=== PATIENT | female | born 1995 | race Caucasian/White ===

== ENCOUNTER 2017-03-26 20:20 | Emergency (ER) | payer OTHER ==
[2017-03-26 20:33] VITALS: BP 168/95; PULSE 125; TEMP 99.5; BMI 48.2
--- NOTE | 2017-03-26 20:34 | PDOC ---
Rapid Medical Evaluation Chief Complaint: Back Pain Time Seen by Provider: 03/26/17 20:31 Medical Evaluation: Allergies Allergy/AdvReac Type Severity Reaction Status Date / Time No Known Allergies Allergy Verified 03/26/17 20:28 03/26/17 20:31 I performed a brief in-person evaluation of this patient. This patient presents with a chief complaint of constant lower back pain, that is exacerbated by movement x 3 weeks. States pain radiates into right leg. Reports no pain or burning with urination. Also reports no fever chills or flank pain. Used tylenol occassionally with no complete relief. Pertinent physical exam findings: NAD lungs clear bilaterally heart s1s2 no mid spinal tenderness no cva tenderness I have ordered the following: urine , urinalysis, urine culture The patient will proceed to the ED for further evaluation.
[2017-03-26 20:55] LABS: URINE APPEARANCE CLEAR; URINE BILIRUBIN NEGATIVE (NEGATIVE); URINE BLOOD NEGATIVE (NEGATIVE); URINE COLOR LTYELLOW; URINE GLUCOSE (UA) NEGATIVE (NEGATIVE); URINE KETONE NEGATIVE (NEGATIVE); URINE LEUK ESTERASE NEGATIVE (NEGATIVE); URINE NITRITE NEGATIVE (NEGATIVE); URINE PROTEIN NEGATIVE (NEGATIVE)
[2017-03-26 23:34] LABS: HCG,QUALITATIVE URINE NEGATIVE
[2017-03-27] MEDS ORDERED: IBUPROFEN 400 MG TABLET (FP) PO ONE ×2 (01:30→03:31)
[2017-03-27] MEDS ORDERED: METHOCARBAMOL 500 MG TABLET PO ONE (01:30)
--- NOTE | 2017-03-27 01:32 | PDOC ---
History of Present Illness - History of Present Illness Initial Comments: 03/27/17 02:01 Patient is a 21F, with no significant PMHx, who presents to the ED with lower back pain for 2 weeks. Patient states the back pain is more towards right side. She denies experiencing trauma, falling, or doing any heavy lifting. She states she was having menstrual cramps, but her menses resolved and her pain continued. Patient states her periods are normally regular. She states she took two Tylenol occasionally for pain w/ no relief. She also reports feeling her lower back tighten when she bends. She states he appetite has been normal. She denies fever, chills, nausea, vomit, dysuria frequency, or sick contacts <Tika Saldivar - Last Filed: 03/27/17 02:01> - General History Source: Patient <Angel Luis Luis - Last Filed: 03/27/17 03:03> - General Chief Complaint: Back Pain Stated Complaint: BACK PAIN Time Seen by Provider: 03/26/17 20:31 Past History <Tika Saldivar - Last Filed: 03/27/17 02:01> - Suicide/Smoking/Psychosocial Hx Smoking History: Never smoked <Angel Luis Luis - Last Filed: 03/27/17 03:03> - Past Medical History Allergies/Adverse Reactions: Allergies Allergy/AdvReac Type Severity Reaction Status Date / Time No Known Allergies Allergy Verified 03/26/17 20:28 Home Medications: Ambulatory Orders Ibuprofen 800 mg PO TID #30 tablet 03/27/17 Methocarbamol [Robaxin -] 1,500 mg PO Q8H #60 tablet 03/27/17 Review of Systems - Review of Systems Comments:: 03/27/17 02:01 CONSTITUTIONAL: Absent: fever, no chills, no fatigue EYES: Absent: visual changes ENT: Absent: ear pain, no sore throat CARDIOVASCULAR: Absent: chest pain, no palpitations RESPIRATORY: Absent: cough, no SOB GI: Absent: abdominal pain, no nausea, no vomiting, no constipation, no diarrhea GENITOURINARY: Absent: dysuria, no frequency, no hematuria MUSKULOSKELETAL: Present: back pain Absent: no arthralgia SKIN: Absent: rash NEURO: Absent: headache <Tika Saldivar - Last Filed: 03/27/17 02:01> *Physical Exam - Vital Signs Last Vital Signs Temp Pulse Resp BP Pulse Ox 99.5 F 125 H 20 168/95 99 03/26/17 20:28 03/26/17 20:28 03/26/17 20:28 03/26/17 20:28 03/26/17 20:28 - Physical Exam Comments: 03/27/17 02:02 GENERAL: Well-appearing, well-nourished. No acute distress. Morbidly obese. HEENT: Normocephalic, atraumatic. PERRL, EOM intact. CARDIOVASCULAR: Normal S1, S2. Regular rate and rhythm. PULMONARY: Clear to auscultation bilaterally. ABDOMEN: Soft, non-distended, non-tender. EXTREMITIES: Normal ROM in all four extremities. No gross deformities. SKIN: Warm, dry. No rash NEUROLOGICAL: No focal neurological deficits. <Tika Saldivar - Last Filed: 03/27/17 02:01> - Vital Signs Last Vital Signs Temp Pulse Resp BP Pulse Ox 99.5 F 125 H 20 168/95 99 03/26/17 20:28 03/26/17 20:28 03/26/17 20:28 03/26/17 20:28 03/26/17 20:28 <Angel Luis Luis - Last Filed: 03/27/17 03:03> ED Treatment Course - ADDITIONAL ORDERS Additional order review: Laboratory Results 03/26/17 20:40 Urine Color Ltyellow Urine Appearance Clear Urine pH 6.0 Ur Specific Dagmar 1.017 Urine Protein Negative Urine Glucose (UA) Negative Urine Ketones Negative Urine Blood Negative Urine Nitrite Negative Urine Bilirubin Negative Urine Urobilinogen 2.0 H Ur Leukocyte Esterase Negative Urine HCG, Qual Negative <Tika Saldivar - Last Filed: 03/27/17 02:01> - ADDITIONAL ORDERS Additional order review: Laboratory Results 03/26/17 20:40 Urine Color Ltyellow Urine Appearance Clear Urine pH 6.0 Ur Specific Dagmar 1.017 Urine Protein Negative Urine Glucose (UA) Negative Urine Ketones Negative Urine Blood Negative Urine Nitrite Negative Urine Bilirubin Negative Urine Urobilinogen 2.0 H Ur Leukocyte Esterase Negative Urine HCG, Qual Negative <Angel Luis Luis - Last Filed: 03/27/17 03:03> Medical Decision Making - Medical Decision Making 03/27/17 03:03 Dr. Luis: The scribe's documentation has been prepared under my direction and personally reviewed by me in its entirery. I confirm that the note above accurately reflects all work, treatment, procedures, and medical decision making performed by me. <Angel Luis Luis - Last Filed: 03/27/17 03:03> *DC/Admit/Observation/Transfer - Attestations Scribe Attestion: 03/27/17 02:02 Documentation prepared by Tika Saldivar, acting as medical affairs director for Angel Luis Luis MD. <Tika Saldivar - Last Filed: 03/27/17 02:01> - Discharge Dispostion Admit: No <Angel Luis Luis - Last Filed: 03/27/17 03:03> Diagnosis at time of Disposition: Low back pain Qualifiers: Chronicity: unspecified Back pain laterality: right Sciatica presence: without sciatica Qualified Code(s): M54.5 - Low back pain - Discharge Dispostion Disposition: HOME Condition at time of disposition: Stable - Prescriptions Prescriptions: Ibuprofen 800 mg PO TID #30 tablet Methocarbamol [Robaxin -] 1,500 mg PO Q8H #60 tablet - Referrals Referrals: Emma Coleman MD [Staff Physician] - - Patient Instructions Printed Discharge Instructions: DI for Low Back Pain
[2017-03-27] MEDS ORDERED: METHOCARBAMOL 500 MG TABLET ONE (03:31)
== END 2017-03-27 03:41 | disposition home or self-care (01) ==
LOC: JER 20:20
DX: M54.5 Low back pain (principal)
CPT/HCPCS: 72131-TC; 81003; 84703; 87086; 99281-25

== ENCOUNTER 2018-12-27 18:13 | Emergency (ER) | payer OTHER ==
[2018-12-27 18:21] VITALS: BMI 53.1
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
[2018-12-27] MEDS ORDERED: diazePAM 5 MG TABLET PO ONE (18:56)
[2018-12-27] MEDS ORDERED: ACETAMINOPHEN 325 MG TABLET (FP) PO ONE (18:57)
[2018-12-27 18:58] LABS: BASO % 0.7 % (0-2.0); EOS % 1.6 % (0-4.5); HEMATOCRIT 43.3 % (32.4-45.2); HEMOGLOBIN 14.3 GM/dL (10.7-15.3); LYMPH % 29.6 % (8-40); MCH 27.2 pg (25.7-33.7); MEAN CELL VOLUME 82.6 fl (80-96); MEAN PLT VOLUME 7.7 fl (7.5-11.1); MONO % 6.2 % (3.8-10.2); NEUT % 61.9 % (42.8-82.8); PLATELET COUNT 343 K/MM3 (134-434); RBC 5.25 M/mm3 (3.60-5.2); RDW 14.7 % (11.6-15.6); WHITE BLOOD COUNT 9.7 K/mm3 (4.0-10.0)
[2018-12-27 19:37] LABS: ALBUMIN 4.1 g/dl (3.4-5.0); ALK PHOS 89 U/L (45-117); ANION GAP 10 MMOL/L (8-16); BILIRUBIN,TOTAL 0.7 mg/dL (0.2-1); BLOOD UREA NITROGEN 9.7 mg/dL (7-18); CALCIUM 9.7 mg/dL (8.5-10.1); CHLORIDE 105 mmol/L (98-107); CO2 24 mmol/L (21-32); CREATININE 0.7 mg/dL (0.55-1.3); GLUCOSE,RANDOM 82 mg/dL (74-106); MAGNESIUM 1.9 mg/dL (1.8-2.4); PHOSPHOROUS 3.8 mg/dL (2.5-4.9); SGOT/AST 17 U/L (15-37); SGPT/ALT 30 U/L (13-61); SODIUM 139 mmol/L (136-145)
[2018-12-27] MEDS ORDERED: ACETAMINOPHEN 325 MG TABLET (FP) ONE (19:51)
[2018-12-27] MEDS ORDERED: diazePAM 5 MG TABLET ONE (19:51)
[2018-12-27 20:29] VITALS: BP 139/79; PULSE 81; TEMP 98
--- NOTE | 2018-12-28 20:21 | EKG ---
Test Reason : Blood Pressure : / mmHG Vent. Rate : 092 BPM Atrial Rate : 092 BPM P-R Int : 144 ms QRS Dur : 080 ms QT Int : 346 ms P-R-T Axes : 050 071 058 degrees QTc Int : 427 ms NORMAL SINUS RHYTHM POSSIBLE LEFT ATRIAL ENLARGEMENT CANNOT RULE OUT ANTERIOR INFARCT , AGE UNDETERMINED ABNORMAL ECG NO PREVIOUS ECGS AVAILABLE Confirmed by MD GRACIA, SELIN ([id number]) on 12/28/2018 8:21:17 PM Referred By: Confirmed By:SELIN FAGAN MD
== END 2018-12-27 20:42 | disposition home or self-care (01) ==
LOC: JER 18:13
DX: F41.9 Anxiety disorder, unspecified (principal); M79.10 Myalgia, unspecified site; R07.9 Chest pain, unspecified; Z88.0 Allergy status to penicillin; E66.2 Morbid (severe) obesity with alveolar hypoventilation; Z68.43 Body mass index [BMI] 50.0-59.9, adult; F31.9 Bipolar disorder, unspecified; V43.62XA Car passenger injured in collision with other type car in traffic accident, initial encounter; Y93.89 Activity, other specified; Y92.410 Unspecified street and highway as the place of occurrence of the external cause
CPT/HCPCS: 36415; 71046-TC-FY; 80053; 82550; 83735; 84100; 84484; 84702; 84703; 85025; 93005; 93010; 99283-25

== ENCOUNTER 2019-05-11 17:51 | Emergency (ER) | payer OTHER ==
[2019-05-11 17:59] VITALS: BP 138/77; PULSE 82; TEMP 98.2; BMI 52.5
--- NOTE | 2019-05-11 19:08 | PDOC ---
History of Present Illness - General Chief Complaint: Pain Stated Complaint: BACK PAIN Time Seen by Provider: 05/11/19 18:29 History Source: Patient - History of Present Illness Initial Comments: 05/11/19 19:13 Chief complaint: Back pain Patient is a healthy 23-year-old female whose only medical history relates to her lower back for the last 2 years. Patient states she has been having right lower back pain since . Patient denies any fever, numbness. Patient took a Tylenol, she also took Flexeril which did not help. Patient does not know when her last period is because she has an IUD. Patient had x-ray and CT done of her back little over a year ago. GENERAL/CONSTITUTIONAL: No fever, weakness. dizziness HEAD, EYES, EARS, NOSE AND THROAT: No change in vision. No ear pain or discharge. No sore throat. CARDIOVASCULAR: No chest pain RESPIRATORY: No shortness of breath or cough GASTROINTESTINAL: No pain, nausea, vomiting, diarrhea or constipation GENITOURINARY: No dysuria MUSCULOSKELETAL: No neck, +back pain SKIN: No rash NEUROLOGIC: No headache, vertigo, loss of consciousness, or loss of sensation. GENERAL: The patient is awake, alert, and fully oriented, in no acute distress. HEAD: Normal with no signs of trauma. EYES: Pupils equal, round and reactive to light, sclera anicteric, conjunctiva clear. ENT: pharynx: no erythema, no exudate, uvula midline NECK: supple CHEST: clear, nontender, rr ABD: soft, nontender BACK: Mild right posterior questionable iliac crest tenderness, no CVAT, no other tenderness or signs of injury EXTREMITIES: Normal range of motion, no edema. NEUROLOGICAL: Normal speech, normal gait. Cranial nerves II through XII grossly intact, no gross focal abnormalities SKIN: Warm, Dry Past History - Past Medical History Allergies/Adverse Reactions: Allergies Allergy/AdvReac Type Severity Reaction Status Date / Time Penicillins Allergy Verified 05/11/19 17:59 Home Medications: Ambulatory Orders Ibuprofen 800 mg PO TID #30 tablet 03/27/17 Methocarbamol [Robaxin -] 1,500 mg PO Q8H #60 tablet 03/27/17 COPD: No Psychiatric Problems: Yes (BIPOLAR) Other medical history: chronic lower back pain - Psycho Social/Smoking Cessation Hx Smoking History: Never smoked Hx Alcohol Use: No Drug/Substance Use Hx: No *Physical Exam - Vital Signs Last Vital Signs Temp Pulse Resp BP Pulse Ox 98.2 F 82 18 138/77 99 05/11/19 17:56 05/11/19 17:56 05/11/19 17:56 05/11/19 17:56 05/11/19 17:56 Medical Decision Making - Medical Decision Making 05/11/19 19:16 23-year-old female with history of chronic back issues, with pain to the right iliac area, going down the leg, no numbness, no incontinence, no saddle anesthesia. No red flags. Patient took Flexeril. She had taken 1 Tylenol. Patient has an IUD and has irregular periods. Will get UA, urine , if negative, will treat for pain. Urine and UA are negative, will give Toradol, prescribed Mobic have patient follow-up with spine doctor Discussed issues, findings, results, applicable medications and treatments and follow-up. All these were understood and all questions were answered 05/11/19 20:16 Discharge - Discharge Information Problems reviewed: Yes Clinical Impression/Diagnosis: Back pain Qualifiers: Back pain location: low back pain Chronicity: unspecified Back pain laterality : right Sciatica presence: with sciatica Sciatica laterality: sciatica of right side Qualified Code(s): M54.41 - Lumbago with sciatica, right side Condition: Stable Disposition: HOME - Admission No - Follow up/Referral Referrals: Justo Gray MD, [facility] [Staff Physician] - - Patient Discharge Instructions Patient Printed Discharge Instructions: Managing Chronic Low Back Pain Additional Instructions: No heavy lifting or bending Apply ice to the area 20 minutes every 2 hours for the next 2 days You can take Mobic 15 mg once daily for 1 week only. Do not take any Motrin, Advil, ibuprofen, Aleve or any related medications/aspirin with this. You can take Tylenol 650 every 4 hours with that. You can also take your cyclobenzaprine. Return to the nearest ER if numbness, weakness, severe pain, problems with urinating or having bowel movements. It is very important for you to follow-up with a spine doctor so you can get proper evaluation and management of your pain - Post Discharge Activity
[2019-05-11 19:51] LABS: URINE APPEARANCE CLEAR; URINE BILIRUBIN NEGATIVE (NEGATIVE); URINE COLOR YELLOW; URINE GLUCOSE (UA) NEGATIVE (NEGATIVE); URINE KETONE NEGATIVE (NEGATIVE); URINE LEUK ESTERASE NEGATIVE (NEGATIVE); URINE NITRITE NEGATIVE (NEGATIVE); URINE PROTEIN NEGATIVE (NEGATIVE); URINE UROBILINOGEN 0.2 mg/dL (0.2-1.0)
[2019-05-11] MEDS ORDERED: KETOROLAC TROMETHAMINE 60 MG/2 ML VIAL IM ONE (20:15)
[2019-05-11] MEDS ORDERED: KETOROLAC TROMETHAMINE 60 MG/2 ML VIAL ONE (20:17)
== END 2019-05-11 20:27 | disposition home or self-care (01) ==
LOC: JERFT 17:51
PROC: 3E0233Z Introduction of Anti-inflammatory into Muscle, Percutaneous Approach (ICD-10-PCS; principal; 2019-05-11)
DX: M54.41 Lumbago with sciatica, right side (principal); F31.9 Bipolar disorder, unspecified; Z97.5 Presence of (intrauterine) contraceptive device; Z88.0 Allergy status to penicillin
CPT/HCPCS: 81003; 84703; 87086; 96372; 99284-25

== ENCOUNTER 2022-07-31 18:40 | Inpatient (IN) | payer OTHER ==
[2022-07-31] MEDS ORDERED: DEXTROSE 5%-LACTATED RINGERS 1,000 ML IV SCH (19:45)
[2022-07-31 19:48] VITALS: BMI 53.5
[2022-07-31] MEDS ORDERED: MISOPROSTOL 100 MCG TABLET PV SCH (20:30)
[2022-07-31 20:32] LABS: BASO % 0.1 % (0-2.0); EOS % 0.6 % (0-4.5); HEMATOCRIT 35.9 % (32.4-45.2); HEMOGLOBIN 12.2 GM/dL (10.7-15.3); LYMPH % 19.5 % (8-40); MCH 27.6 pg (25.7-33.7); MCHC 33.9 g/dl (32.0-36.0); MEAN CELL VOLUME 81.4 fl (80-96); MEAN PLT VOLUME 8.5 fl (7.5-11.1); MONO % 5.9 % (3.8-10.2); NEUT % 73.9 % (42.8-82.8); PLATELET COUNT 294 10^3/uL (134-434); RBC 4.42 M/mm3 (3.60-5.2); RDW 15.7 % (11.6-15.6); WHITE BLOOD COUNT 9.2 K/mm3 (4.0-10.0)
[2022-07-31 20:40] LABS: INR 1.03 (0.83-1.09); PROTHROMBIN TIME (PATIENT) 11.9 SEC (9.7-13.0)
[2022-07-31 20:43] LABS: ACTIVATED PTT 35.2 SECONDS (25.2-36.5)
[2022-07-31 21:00] LABS: POTASSIUM 4.2 mmol/L (3.5-5.1)
[2022-07-31 21:01] LABS: BLOOD UREA NITROGEN 12.9 mg/dL (7-18); CALCIUM 9.5 mg/dL (8.5-10.1)
[2022-07-31 21:05] LABS: CREATININE 0.6 mg/dL (0.55-1.3)
[2022-07-31] MEDS ORDERED: CLINDAMYCIN 900 MG PREMIX IVPB 900 MG/50 ML BAG IVPB ONE (22:56)
[2022-07-31] MEDS: CLINDAMYCIN 900 MG PREMIX IVPB 900 MG/50 ML BAG IVPB SCH (23:00)
[2022-07-31] MEDS: LABETALOL HCL 100 MG TABLET (FP) PO SCH (23:30)
[2022-07-31] MEDS ORDERED: LABETALOL HCL 100 MG TABLET (FP) ONE (23:37)
[2022-08-01] MEDS ORDERED: OXYTOCIN 30 UNITS in 0.9% NS 30 UNIT/500 ML INFUS.BAG IVPB ONE (03:56)
[2022-08-01] MEDS ORDERED: OXYTOCIN 30 UNITS in 0.9% NS 30 UNIT/500 ML INFUS.BAG IVPB SCH (04:00)
[2022-08-01] MEDS ORDERED: morphine CARPU-JECT 8 MG/1 ML DISP.SYRIN IVPB ONE (05:02)
[2022-08-01] MEDS ORDERED: OXYTOCIN 20 UNITS in 0.9% NS 20 UNIT/1,000 ML INFUS.BAG IV ONE (05:11)
[2022-08-01] MEDS ORDERED: BENZOCAINE 28 GM HEMORRHOIDAL OINTMENT TP PRN (05:52)
[2022-08-01] MEDS ORDERED: ACETAMINOPHEN 325 MG TABLET (FP) PO PRN (05:52)
[2022-08-01] MEDS ORDERED: WITCH HAZEL 50% (TUCKS) 40 PAD/JAR PAD TP PRN (05:52)
[2022-08-01] MEDS ORDERED: OXYTOCIN 20 UNITS in 0.9% NS 20 UNIT/1,000 ML INFUS.BAG IV SCH (06:00)
[2022-08-01 06:27] LABS: CORD BASE EXCESS -4.6 mmol/L (0-2); CORD HCO3 18.6 mmHg (20-29); CORD PCO2 29.9 mmHg (30-78); CORD pH 7.411 (7.14-7.44)
[2022-08-01 06:28] LABS: CORD BASE EXCESS -7.1 mmol/L (0-2); CORD HCO3 19.5 mmHg (20-29); CORD PCO2 42.9 mmHg (30-78); CORD pH 7.275 (7.14-7.44)
[2022-08-01] MEDS: CLINDAMYCIN 900 MG PREMIX IVPB 900 MG/50 ML BAG IVPB SCH ×2 (10:46→18:43)
[2022-08-01] MEDS: FERROUS SO4 325 MG TABLET (FP) PO SCH ×3 (10:47→16:57)
[2022-08-01] MEDS: PRENATAL VITAMINS W/ FOLIC ACID TABLET (FP) PO SCH (10:47)
[2022-08-01] MEDS: IBUPROFEN 600 MG TABLET (FP) PO PRN ×3 (10:48→21:00)
[2022-08-01] MEDS: LABETALOL HCL 100 MG TABLET (FP) PO SCH (10:51)
[2022-08-01] MEDS: DOCUSATE SODIUM 100 MG CAPSULE (FP) PO PRN (21:01)
[2022-08-01] MEDS ORDERED: LABETALOL HCL 200 MG TABLET (FP) PO SCH (22:00)
[2022-08-02] MEDS: CLINDAMYCIN 900 MG PREMIX IVPB 900 MG/50 ML BAG IVPB SCH (01:08)
[2022-08-02 08:17] LABS: BASO % 0.4 % (0-2.0); EOS % 1.3 % (0-4.5); HEMATOCRIT 27.1 % (32.4-45.2); HEMOGLOBIN 9.5 GM/dL (10.7-15.3); LYMPH % 27.5 % (8-40); MCHC 35.2 g/dl (32.0-36.0); MEAN CELL VOLUME 82.4 fl (80-96); MEAN PLT VOLUME 8.8 fl (7.5-11.1); MONO % 5.6 % (3.8-10.2); NEUT % 65.2 % (42.8-82.8); PLATELET COUNT 228 10^3/uL (134-434); RBC 3.28 M/mm3 (3.60-5.2); RDW 15.3 % (11.6-15.6); WHITE BLOOD COUNT 8.1 K/mm3 (4.0-10.0)
[2022-08-02] MEDS: FERROUS SO4 325 MG TABLET (FP) PO SCH ×3 (09:53→17:56)
[2022-08-02] MEDS: PRENATAL VITAMINS W/ FOLIC ACID TABLET (FP) PO SCH (09:53)
[2022-08-02] MEDS ORDERED: DIPHTH,PERTUSS(ACELL),TET 0.5 ML DISP.SYRIN IM ONE (10:00)
[2022-08-02 10:16] VITALS: RESP 18
[2022-08-02] MEDS: IBUPROFEN 600 MG TABLET (FP) PO PRN ×2 (14:58→20:14)
[2022-08-03] MEDS: IBUPROFEN 600 MG TABLET (FP) PO PRN (06:27)
[2022-08-03] MEDS: FERROUS SO4 325 MG TABLET (FP) PO SCH (08:59)
[2022-08-03] MEDS: DOCUSATE SODIUM 100 MG CAPSULE (FP) PO PRN (09:00)
[2022-08-03] MEDS: PRENATAL VITAMINS W/ FOLIC ACID TABLET (FP) PO SCH (09:00)
[2022-08-03 09:38] VITALS: BP 135/80; PULSE 85; TEMP 98.2
== END 2022-08-03 12:50 | disposition home or self-care (01) | DRG 560 ==
LOC: JLDR 18:40 → J3W 08-01 08:10
PROVIDERS: ADMIT Obstetrics & Gynecology Maternal & Fetal Medicine; ATTEND Obstetrics & Gynecology Maternal & Fetal Medicine
PROC: 10E0XZZ Delivery of Products of Conception, External Approach (ICD-10-PCS; principal; 2022-08-01)
DX: O16.4 Unspecified maternal hypertension, complicating childbirth (principal); O99.02 Anemia complicating childbirth; D64.9 Anemia, unspecified; O99.214 Obesity complicating childbirth; E66.9 Obesity, unspecified; Z3A.39 39 weeks gestation of pregnancy; Z37.0 Single live birth
CPT/HCPCS: 36415; 36600; 80048; 82803; 85025; 85610; 85730; 86780; 86850; 86900; 86901; 88307-TC; 90715; C9803-CS; U0003; U0005